=== PATIENT | female | born 1995 | race Caucasian/White ===

== ENCOUNTER → 2016-05-17 | Outpatient (CLI) | payer OTHER ==
--- NOTE | 2016-05-17 12:25 | CR ---
EXAMINATION: Right wrist HISTORY: Pain COMPARISON: 05/02/2016 TECHNIQUE: 2 views FINDINGS/IMPRESSION: There is stable screw and plate fixation of a distal radius fracture, unchanged in position and alignment. There is a tiny ulnar styloid chip fracture noted. The remaining visuali zed osseous structures appear grossly intact.
== END ==
LOC: MW.CHORTHO 07:34
PROVIDERS: ATTEND Physician Assistant
DX: M25.531 Pain in right wrist (principal); Z96.7 Presence of other bone and tendon implants; S52.614A Nondisplaced fracture of right ulna styloid process, initial encounter for closed fracture
CPT/HCPCS: 73100-26-RT; 73100-RT